=== PATIENT | male | born 1970 | race Caucasian/White ===

== ENCOUNTER 2019-11-17 14:00 | Outpatient (RCR) | payer OTHER, SELFPAY | END 2019-11-17 15:00 | disposition home or self-care (01) | LOC: PT.CARL 14:00 | PROVIDERS: Visit Provider Orthopaedic Surgery Hand Surgery | DX: S62.644D Nondisplaced fracture of proximal phalanx of right ring finger, subsequent encounter for fracture with routine healing (principal) | CPT/HCPCS: 97010; 97018; 97033; 97110; 97140; 97163; 97164 ==

== ENCOUNTER 2020-03-14 09:00 | Outpatient (RCR) | payer OTHER, SELFPAY | END 2020-03-28 14:23 | disposition home or self-care (01) | LOC: OT 09:00 | PROVIDERS: Visit Provider Orthopaedic Surgery Hand Surgery | DX: S66.31 Strain of extensor muscle, fascia and tendon of other and unspecified finger at wrist and hand level (principal) | CPT/HCPCS: 97010; 97018; 97035; 97110; 97140; 97164; 97165; 97530 ==

== ENCOUNTER 2020-04-06 14:01 | Outpatient (RCR) | payer OTHER, SELFPAY | END 2020-05-09 10:17 | disposition home or self-care (01) | LOC: OT 14:01 | PROVIDERS: Visit Provider Orthopaedic Surgery Hand Surgery | DX: S62.614D Displaced fracture of proximal phalanx of right ring finger, subsequent encounter for fracture with routine healing (principal) | CPT/HCPCS: 97110; 97165 ==